=== PATIENT | female | born 2000 | race Caucasian/White ===

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

== ENCOUNTER 2021-08-20 00:10 | Emergency (ER) | payer OTHER ==
[2021-08-20 00:48] VITALS: BP 108/71; PULSE 85; TEMP 98.1; BMI 24.0
[2021-08-20 01:45] LABS: BASO % 0.6 % (0-2.0); EOS % 1.6 % (0-4.5); HEMATOCRIT 38.8 % (32.4-45.2); HEMOGLOBIN 13.5 GM/dL (10.7-15.3); LYMPH % 28.1 % (8-40); MCH 30.1 pg (25.7-33.7); MCHC 34.8 g/dl (32.0-36.0); MEAN CELL VOLUME 86.6 fl (80-96); MEAN PLT VOLUME 7.9 fl (7.5-11.1); MONO % 9.6 % (3.8-10.2); NEUT % 60.1 % (42.8-82.8); PLATELET COUNT 300 10^3/uL (134-434); RBC 4.48 M/mm3 (3.60-5.2); RDW 13.9 % (11.6-15.6); WHITE BLOOD COUNT 8.1 K/mm3 (4.0-10.0)
== END 2021-08-20 03:26 | disposition home or self-care (01) ==
LOC: JER 00:10
DX: O20.0 Threatened abortion (principal); Z3A.09 9 weeks gestation of pregnancy
CPT/HCPCS: 36415; 76801-TC; 84702; 85025; 86850; 86900; 86901; 99284-25

== ENCOUNTER 2021-08-21 13:02 | Emergency (ER) | payer OTHER ==
[2021-08-21 13:27] VITALS: BP 109/70; PULSE 63; TEMP 98.1; BMI 24.0
== END 2021-08-21 14:09 | disposition home or self-care (01) ==
LOC: JER 13:02
DX: O26.851 Spotting complicating pregnancy, first trimester (principal); Z3A.09 9 weeks gestation of pregnancy
CPT/HCPCS: 99281-25

== ENCOUNTER 2022-03-24 07:52 | Inpatient (IN) | payer OTHER ==
[2022-03-24] MEDS: ELECTROLYTE-148 SOLN 1,000 ML IV SCH ×3 (08:40→22:42)
[2022-03-24 08:51] LABS: BASO % 0.6 % (0-2.0); EOS % 1.8 % (0-4.5); HEMATOCRIT 38.6 % (32.4-45.2); HEMOGLOBIN 13.4 GM/dL (10.7-15.3); LYMPH % 20.5 % (8-40); MCH 31.1 pg (25.7-33.7); MCHC 34.7 g/dl (32.0-36.0); MEAN CELL VOLUME 89.7 fl (80-96); MEAN PLT VOLUME 7.1 fl (7.5-11.1); MONO % 7.7 % (3.8-10.2); NEUT % 69.4 % (42.8-82.8); PLATELET COUNT 276 10^3/uL (134-434); RDW 13.4 % (11.6-15.6); WHITE BLOOD COUNT 10.5 K/mm3 (4.0-10.0)
[2022-03-24 08:56] LABS: INR 0.98 (0.83-1.09); PROTHROMBIN TIME (PATIENT) 11.3 SEC (9.7-13.0)
[2022-03-24 08:59] LABS: ACTIVATED PTT 26.6 SECONDS (25.2-36.5)
[2022-03-24 09:09] LABS: BLOOD UREA NITROGEN 6.8 mg/dL (7-18); CALCIUM 9.2 mg/dL (8.5-10.1)
[2022-03-24 09:13] LABS: CREATININE 0.5 mg/dL (0.55-1.3)
[2022-03-24 09:26] VITALS: BMI 31.1
[2022-03-24] MEDS ORDERED: OXYTOCIN 30 UNITS in 0.9% NS 30 UNIT/500 ML INFUS.BAG IVPB ONE (12:27)
[2022-03-24] MEDS: OXYTOCIN 30 UNITS in 0.9% NS 30 UNIT/500 ML INFUS.BAG IVPB SCH (12:30)
[2022-03-24] MEDS ORDERED: FENTANYL/BUPIVACAINE/NS/PF - PCEA - 50 ML DISP.SYRIN EP ONE ×3 (15:48→22:37)
[2022-03-24] MEDS: FENTANYL/BUPIVACAINE/NS/PF - PCEA - 50 ML DISP.SYRIN EP SCH (16:10)
[2022-03-24] MEDS ORDERED: NALOXONE HCL 0.4 MG/ML VIAL IVPUSH PRN (17:16)
[2022-03-24 17:42] LABS: PHENCYCLIDINE,URINE NEGATIVE (NEGATIVE); URINE BARBITURATES NEGATIVE (NEGATIVE)
[2022-03-24 17:43] LABS: METHADONE, UR NEGATIVE (NEGATIVE); OPIATES, URI NEGATIVE (NEGATIVE)
[2022-03-24 17:46] LABS: COCAINE, UR NEGATIVE (NEGATIVE); URINE AMPHETAMINES NEGATIVE (NEGATIVE); URINE BENZODIAZEPINES NEGATIVE (NEGATIVE)
[2022-03-24] MEDS ORDERED: BUPIVACAINE HCL/PF 0.25% (2.5MG/ML) 10 ML VIAL ONE (21:03)
[2022-03-24] MEDS ORDERED: LIDOCAINE HCL 1% PRESERVATIVE FREE - 30ML VIAL ONE (23:18)
[2022-03-24] MEDS ORDERED: OXYTOCIN 20 UNITS in 0.9% NS 20 UNIT/1,000 ML INFUS.BAG IV ONE (23:18)
[2022-03-25] MEDS ORDERED: BUPIVACAINE HCL/PF 0.25% (2.5MG/ML) 10 ML VIAL ONE ×2 (00:14→02:51)
[2022-03-25] MEDS ORDERED: FENTANYL/BUPIVACAINE/NS/PF - PCEA - 50 ML DISP.SYRIN EP ONE ×2 (02:15→07:49)
[2022-03-25] MEDS: ELECTROLYTE-148 SOLN 1,000 ML IV SCH (05:50)
[2022-03-25] MEDS ORDERED: AMPICILLIN - 2 GM in SODIUM CHLORIDE 100 ML IVPB ONE (06:10)
[2022-03-25] MEDS ORDERED: AMPICILLIN SODIUM 2 GM VIAL ONE (06:11)
[2022-03-25] MEDS: FENTANYL/BUPIVACAINE/NS/PF - PCEA - 50 ML DISP.SYRIN EP SCH (07:50)
[2022-03-25] MEDS ORDERED: LIDOCAINE HCL/EPINEPHRINE/PF 20 ML VIAL ONE (09:04)
[2022-03-25] MEDS ORDERED: CITRIC ACID/SODIUM CITRATE 30 ML UNIT-DOSE CUP PO ONE (09:07)
[2022-03-25] MEDS ORDERED: KETAMINE HCL 500 MG/10 ML VIAL ONE (09:22)
[2022-03-25] MEDS ORDERED: ACETAMINOPHEN 325 MG TABLET (FP) PO PRN (10:12)
[2022-03-25] MEDS ORDERED: METHYLERGONOVINE MALEATE 0.2 MG/1 ML AMP IM PRN (10:12)
[2022-03-25 10:20] LABS: CORD BASE EXCESS -7.3 mmol/L (0-2); CORD PCO2 47.8 mmHg (30-78); CORD pH 7.24 (7.14-7.44)
[2022-03-25 10:24] LABS: CORD BASE EXCESS -5.4 mmol/L (0-2); CORD HCO3 19.7 mmHg (20-29); CORD PCO2 37.5 mmHg (30-78); CORD pH 7.339 (7.14-7.44)
[2022-03-25] MEDS: OXYTOCIN 20 UNITS in 0.9% NS 20 UNIT/1,000 ML INFUS.BAG IV SCH (10:25)
[2022-03-25] MEDS ORDERED: OXYTOCIN 20 UNITS in 0.9% NS 20 UNIT/1,000 ML INFUS.BAG IV ONE (10:26)
[2022-03-25] MEDS ORDERED: ONDANSETRON 4 MG/2 ML VIAL IVPUSH PRN (10:36)
[2022-03-25] MEDS: IBUPROFEN 800 MG/8 ML IJ IVPB PRN ×2 (11:09→18:06)
[2022-03-25] MEDS ORDERED: IBUPROFEN 800 MG/8 ML IJ IVPB ONE (11:11)
[2022-03-25] MEDS: AMPICILLIN - 1 GM in SODIUM CHLORIDE 100 ML IVPB SCH ×2 (11:26→15:51)
[2022-03-25] MEDS ORDERED: oxyCODONE HCL 5 MG TABLET PO PRN ×2 (22:13)
[2022-03-26] MEDS: IBUPROFEN 800 MG/8 ML IJ IVPB PRN (00:54)
[2022-03-26] MEDS: SIMETHICONE 80 MG TAB.CHEW (FP) PO PRN ×2 (06:18→13:03)
[2022-03-26 08:35] LABS: BASO % 0.4 % (0-2.0); EOS % 0.9 % (0-4.5); HEMATOCRIT 28.1 % (32.4-45.2); HEMOGLOBIN 9.5 GM/dL (10.7-15.3); LYMPH % 11.9 % (8-40); MCH 30.9 pg (25.7-33.7); MEAN PLT VOLUME 7.4 fl (7.5-11.1); MONO % 5.7 % (3.8-10.2); NEUT % 81.1 % (42.8-82.8); PLATELET COUNT 248 10^3/uL (134-434); RBC 3.09 M/mm3 (3.60-5.2); RDW 13.3 % (11.6-15.6); WHITE BLOOD COUNT 11.9 K/mm3 (4.0-10.0)
[2022-03-26] MEDS ORDERED: BISACODYL 10 MG SUPP.RECT RC PRN (10:13)
[2022-03-26] MEDS: ENOXAPARIN NA (PORCINE) 40 MG/0.4 ML DISP.SYRIN SQ SCH (10:22)
[2022-03-26] MEDS: IBUPROFEN 600 MG TABLET (FP) PO PRN (13:03)
[2022-03-26] MEDS: OXYTOCIN 30 UNITS in 0.9% NS 30 UNIT/500 ML INFUS.BAG IVPB SCH ×2 (21:46→21:47)
[2022-03-26] MEDS: ELECTROLYTE-148 SOLN 1,000 ML IV SCH ×2 (21:46→21:57)
[2022-03-26] MEDS: FENTANYL/BUPIVACAINE/NS/PF - PCEA - 50 ML DISP.SYRIN EP SCH ×2 (21:47→21:57)
[2022-03-26] MEDS: OXYTOCIN 20 UNITS in 0.9% NS 20 UNIT/1,000 ML INFUS.BAG IV SCH (21:57)
[2022-03-27] MEDS: SIMETHICONE 80 MG TAB.CHEW (FP) PO PRN ×4 (01:44→22:29)
[2022-03-27] MEDS: ENOXAPARIN NA (PORCINE) 40 MG/0.4 ML DISP.SYRIN SQ SCH (10:09)
[2022-03-27] MEDS: IBUPROFEN 600 MG TABLET (FP) PO PRN ×3 (10:21→22:29)
[2022-03-28 07:14] LABS: BASO % 0.4 % (0-2.0); EOS % 1.8 % (0-4.5); HEMATOCRIT 25.5 % (32.4-45.2); HEMOGLOBIN 8.8 GM/dL (10.7-15.3); LYMPH % 22.6 % (8-40); MCH 31.1 pg (25.7-33.7); MCHC 34.6 g/dl (32.0-36.0); MEAN PLT VOLUME 7.3 fl (7.5-11.1); MONO % 8.1 % (3.8-10.2); NEUT % 67.1 % (42.8-82.8); PLATELET COUNT 332 10^3/uL (134-434); RBC 2.83 M/mm3 (3.60-5.2); WHITE BLOOD COUNT 8.7 K/mm3 (4.0-10.0)
[2022-03-28] MEDS: IBUPROFEN 600 MG TABLET (FP) PO PRN (09:08)
[2022-03-28] MEDS: ENOXAPARIN NA (PORCINE) 40 MG/0.4 ML DISP.SYRIN SQ SCH (09:08)
[2022-03-28] MEDS: SIMETHICONE 80 MG TAB.CHEW (FP) PO PRN (09:08)
[2022-03-28 10:43] VITALS: BP 110/67; PULSE 80; TEMP 98.2
== END 2022-03-28 13:06 | disposition home or self-care (01) | DRG 540 ==
LOC: JLDR 07:52 → J3W 03-25 13:25
PROVIDERS: ADMIT Obstetrics & Gynecology; ATTEND Obstetrics & Gynecology
PROC: 3E033VJ Introduction of Other Hormone into Peripheral Vein, Percutaneous Approach (ICD-10-PCS; 2022-03-24)
PROC: 10907ZC Drainage of Amniotic Fluid, Therapeutic from Products of Conception, Via Natural or Artificial Opening (ICD-10-PCS; 2022-03-24)
PROC: 10D00Z1 Extraction of Products of Conception, Low, Open Approach (ICD-10-PCS; principal; 2022-03-25)
DX: O48.0 Post-term pregnancy (principal); O76 Abnormality in fetal heart rate and rhythm complicating labor and delivery; O32.4XX0 Maternal care for high head at term, not applicable or unspecified; O62.8 Other abnormalities of forces of labor; O77.0 Labor and delivery complicated by meconium in amniotic fluid; Z3A.41 41 weeks gestation of pregnancy; Z37.0 Single live birth
CPT/HCPCS: 36415; 36600; 80048; 80307; 82803; 85025; 85610; 85730; 86780; 86850; 86900; 86901; 88307-TC; C9803-CS; U0003; U0005

== ENCOUNTER 2023-12-02 20:31 | Emergency (ER) | payer OTHER ==
[2023-12-02 20:42] VITALS: PULSE 76; TEMP 98.4; BMI 29.9
[2023-12-02 21:35] LABS: PH,URINE 5.5 (5.0-8.0); URINE APPEARANCE CLEAR; URINE BILIRUBIN NEGATIVE (NEGATIVE); URINE COLOR YELLOW; URINE GLUCOSE (UA) NEGATIVE (NEGATIVE); URINE KETONE NEGATIVE (NEGATIVE); URINE LEUK ESTERASE NEGATIVE (NEGATIVE); URINE NITRITE NEGATIVE (NEGATIVE); URINE PROTEIN NEGATIVE (NEGATIVE); URINE UROBILINOGEN 0.2 mg/dL (0.2-1.0)
[2023-12-02 21:44] LABS: HCG,QUALITATIVE URINE Negative
[2023-12-02 23:05] LABS: BASO % 0.8 % (0-2.0); EOS % 2.9 % (0-4.5); HEMOGLOBIN 14.5 GM/dL (10.7-15.3); LYMPH % 36.1 % (8-40); MCH 30.5 pg (25.7-33.7); MCHC 34.6 g/dl (32.0-36.0); MEAN PLT VOLUME 7.2 fl (7.5-11.1); MONO % 5.8 % (3.8-10.2); NEUT % 54.4 % (42.8-82.8); PLATELET COUNT 348 10^3/uL (134-434); RBC 4.77 M/mm3 (3.60-5.2); RDW 13.8 % (11.6-15.6); WHITE BLOOD COUNT 9.6 K/mm3 (4.0-10.0)
[2023-12-02 23:24] LABS: POTASSIUM 4.4 mmol/L (3.5-5.1)
[2023-12-02 23:26] LABS: CALCIUM 9.7 mg/dL (8.5-10.1)
[2023-12-02 23:27] LABS: BLOOD UREA NITROGEN 14.6 mg/dL (7-18)
[2023-12-02 23:30] LABS: CREATININE 0.8 mg/dL (0.55-1.3)
[2023-12-02 23:32] LABS: BILIRUBIN,TOTAL 0.4 mg/dL (0.2-1); TOT PROT 7.2 g/dl (6.4-8.2)
[2023-12-03 01:55] VITALS: BP 126/78; RESP 18
== END 2023-12-03 01:54 | disposition home or self-care (01) ==
LOC: JER 20:31
DX: R10.9 Unspecified abdominal pain (principal)
CPT/HCPCS: 36415; 74177-TC; 76830-TC; 80053; 81003; 84703; 85025; 87086; 99285-25